=== PATIENT | male | born 1960 | race Caucasian/White ===

== ENCOUNTER 2017-11-11 11:06 | Observation (INO) ==
--- NOTE | 2017-11-11 11:20 | Emergency Department Note ---
Disposition Clinical Impression: Dehydration, GERD with esophagitis, Hyponatremia, Diabetes Disposition: Admitted As Inpatient Condition: Fair Forms: ED Satisfaction Letter Time of Disposition: 13:38 ([facility]) Nausea/Vomiting/Diarrhea HPI - General Chief complaint: ED Nausea/Vomiting/Diarrhea Stated complaint: had 3.5 gal of vodka in 2 days, vomiting. Time Seen by Provider: 11/11/17 11:12 Source: patient, EMS Mode of arrival: EMS Limitations: no limitations Nursing Notes Reviewed: Yes Vital Signs Reviewed: Yes - History of Present Illness HPI Narrative: 57-year-old male who over the past 48 hours as consumed 3.5 L of vodka does not recall much over the past couple of days since he started consuming the alcohol denies any chest pain chest pressure denies any abdominal pain has been vomiting and vomited up what he thought looked like blood or blood-type products he's had no blood in his stool he denies blurred vision double vision loss vision denies any chest pain chest pressure palpitations he was recently diagnosed with cancer per the patient but diagnosis was hemachromatosis actually 2 years ago when this diagnosis was made as result patient felt that he probably was a live anymore so he went on the binge for the drinking he states that he's had no blurred vision or double vision he doesn't know when his last bowel movement was it was at least 3-4 days ago did pass a little bit of stool 1-2 little small pieces this morning he states that is not really sure when he urinated last that he denies being incontinent he denies any history of seizure activity patient has a history of having a subdural hematoma with evacuation at [facility] over year. denies headache at this time though he does not really recall much of what happened over the past couple of days to the best of his ability he does know that that at one point he drove into town to get more alcohol Pt Subjective Complaint: nausea, vomiting, abdominal pain Onset (ago): day(s) Description of emesis: bloody, coffee grounds Radiation: diffuse Severity: mild Severity scale (1-10): 3 Quality: cramping Consistency: intermittent Improves with: nothing Worsens with: nonthing Context: alcohol abuse Associated symptoms: Reports: myalgias, loss of appetite, nausea/vomiting, weakness. Denies: chest pain, cough, diaphoresis, fever/chills, headaches, malaise, rash, dysuria, shortness of breath, syncope - Related Data Home Medications Medication Instructions Recorded Confirmed Isosorbide MONOnitrate (24 HR) 60 mg PO BID 04/14/15 11/11/17 [Imdur] Metoprolol [Lopressor] 50 mg PO BID 04/14/15 11/11/17 Nitroglycerin 0.4 mg SL PRN PRN 04/14/15 11/11/17 Famotidine [Pepcid] 40 mg PO BID 05/12/15 11/11/17 Aspirin [Adult Low Dose Aspirin EC] 81 mg PO DAILY 12/01/15 11/11/17 OxyCODONE/APAP 5/325 [Percocet 1 each PO Q6HR PRN 01/01/16 11/11/17 5/325 MG] amLODIPine [Norvasc] 5 mg PO DAILY 02/01/16 11/11/17 metFORMIN [Glucophage] 500 mg PO 0800 11/11/17 11/11/17 Previous Rx's Medication Instructions Recorded Clopidogrel Bisulfate [Plavix] 75 mg PO DAILY #30 tablet 02/01/16 Allergies Allergy/AdvReac Type Severity Reaction Status Date / Time venom-honey bee Allergy Swelling Verified 11/11/17 11:08 [bee venom (honey bee)] of Lip/Tongue/Throat Dopamine AdvReac Chest Pain Verified 11/11/17 11:08 All systems ED: reviewed and negative except as stated. Review of Systems: As Per HPI Constitutional: Reports: weakness. Denies: fever, chills Eyes: Denies: eye pain, eye discharge, vision change ENT ED: Denies: ear pain, throat pain, dental pain Cardiovascular: Denies: chest pain, palpitations, dyspnea on exertion Respiratory: Denies: cough, dyspnea, wheezes Gastrointestinal: Reports: abdominal pain, nausea, vomiting, constipation, hematemesis Genitourinary: Reports: urgency. Denies: dysuria, frequency Musculoskeletal: Denies: back pain, neck pain Integumentary: Denies: rash, abrasion Neurological: Denies: headache, weakness Psychiatric: Denies: anxiety, depression Endocrine: Denies: fatigue Hematological/Lymphatic: Denies: easy bleeding Allergic/Immunologic: Denies: facial swelling Past Medical History - Past Medical History Attestation: Yes The following information was validated with the patient. Source: patient, nursing notes reviewed Medical history: Reports: coronary artery disease, diabetes, GERD, hyperlipidemia, hypertension, migraine, TIA, other Surgical history: Reports: carotid endarterectomy Psychiatric history: Reports: bipolar, PTSD - Social History Smoking Status: Never smoker Smokeless Tobacco Status: No Alcohol use: Reports: recent (Sober for 9 years and recently restarted consumption of alcohol heavy) Last drink: hours (ago) Drug use: Reports: none Physical Exam - General Limitations: no limitations General appearance: alert, in no apparent distress, other (slight confusion of past events) - Head Head exam: atraumatic, normocephalic, normal inspection, other (prior evidence of crainiotomy) - Eye Eye exam: Present: normal appearance, PERRL, EOMI - ENT ENT exam: normal exam, normal oropharynx, mucous membranes moist, TM's normal bilaterally, normal external ear exam - Neck Neck exam: Present: normal inspection, full ROM, trachea midline - Chest Chest inspection: Present: normal inspection, symmetric chest wall rise - Respiratory Respiratory exam: Present: normal lung sounds bilaterally - Cardiovascular Cardiovascular exam: Present: regular rate, normal rhythm, normal heart sounds - Abdominal Exam Abdominal exam: Present: soft, Non-Tender, normal bowel sounds. Absent: mass, pulsatile mass - Extremities Exam Extremities exam: Present: normal inspection, full ROM, normal capillary refill. Absent: tenderness, pedal edema, joint swelling, calf tenderness - Expanded Lower Extremity Exam Neurovascular/Tendon exam: Present: normal capillary refill, normal fine/light touch Gait: observed and normal - Back Exam Back exam: Present: normal inspection, full ROM. Absent: muscle spasm - Neurological Exam Neurological exam: Present: alert, oriented X3, CN II-XII intact, normal gait - Psychiatric Psychiatric exam: Present: normal affect, normal mood - Skin Skin exam: Present: warm, dry, intact, normal color Course Course Narrative: Chills lately seen and examined laboratory data was obtained with completion of the laboratory data though showing a leukocytosis with his history of hemachromatosis CT of the abdomen was done which shows significant inflammatory changes along the duodenum region which is consistent with possible enteritis patient be placed on antibiotics given Protonix admitted services Dr. Rogers for further management Vital Signs Temperature 99.1 F 11/11/17 11:09 Pulse Rate 96 11/11/17 11:09 Respiratory Rate 18 11/11/17 11:09 Blood Pressure 143/88 11/11/17 11:09 O2 Sat by Pulse Oximetry 97 11/11/17 11:09 Temperature 99.1 F 11/11/17 11:09 Pulse Rate 83 11/11/17 13:20 Respiratory Rate 18 11/11/17 13:20 Blood Pressure 136/77 11/11/17 13:20 O2 Sat by Pulse Oximetry 94 11/11/17 13:20 Oxygen Delivery Oxygen Delivery Room Air Nausea/Vomiting/Diarrhea - MDM Narrative Medical decision making narrative: Metabolic imbalance alcohol intoxication and gastritis gastroenteritis constipation renal failure GI bleed - Differential Diagnosis Likely: dehydration - Medical Records Medical records reviewed: Yes I reviewed the patient's medical records. - Lab Data Lab results reviewed: Yes I reviewed the patient's lab results. Result diagrams: 11/11/17 11:40 11/11/17 11:40 Lab Results 11/11/17 11/11/17 11/11/17 Range/Units 11:40 11:40 11:40 WBC 22.5 H (4.3-11.1) K/mcL RBC 5.70 H (4.19-5.50) M/mcL Hgb 17.3 H (12.9-16.9) g/dL Hct 48.6 (37.5-50.1) % MCV 85.3 (83.0-100.0) fL MCH 30.4 (28.0-33.3) pg MCHC 35.6 H (31.6-35.5) g/dL RDW 14.4 (11.5-14.5) % Plt Count 281 (140-400) K/mcL MPV 8.5 L (9.4-12.4) fL Immature Gran % 0.8 (0-4) % Seg Neutrophils % 72.2 % Lymphocytes % 19.6 % Monocytes % 6.0 % Eosinophils % 1.1 % Basophils % 0.3 % Neutrophils # 16.3 H (1.6-8.9) K/mcL Lymphocytes # 4.4 (0.6-4.6) K/mcL Monocytes # 1.4 H (0.0-1.3) K/mcL Eosinophils # 0.3 (0.0-0.6) K/mcL Basophils # 0.1 (0.0-0.2) K/mcL Platelet Estimate Normal (Normal) PT 10.9 (9.4-12.1) Seconds INR 1.0 APTT 26.4 (26.0-36.0) Seconds Sodium 127 L (136-145) mEq/L Potassium 3.7 (3.5-5.1) mEq/L Chloride 85 L (98-107) mEq/L Carbon Dioxide 18 L (23-29) mEq/L BUN 26 H (6-20) mg/dL Creatinine 0.79 (0.70-1.30) mg/dL Est GFR ( Amer) > 60 (> 60) Est GFR (Non-Af Amer) > 60 (> 60) BUN/Creatinine Ratio 33 H (6-26) Glucose 222 H (70-105) mg/dL Calculated Osmolality 276 L (280-300) Lactic Acid (0.5-2.2) mmol/L Calcium 9.4 (8.6-10.3) mg/dL Magnesium 1.9 (1.6-2.6) mg/dL Total Bilirubin 0.9 (0.3-1.0) mg/dL AST 38 (13-39) Units/L ALT 29 (7-52) Units/L Alkaline Phosphatase 65 (34-104) Units/L Serum Total Protein 7.3 (6.4-8.9) g/dL Albumin 4.2 (3.5-5.7) g/dL Globulin 3.1 (2.4-3.5) g/dL Albumin/Globulin Ratio 1.4 (1.1-2.2) Urine Color (Yellow) Urine Clarity (Clear) Urine pH (5.0-8.0) pH Units Ur Specific [place] (1.010-1.025) Urine Protein (Neg-Trace) mg/dL Urine Glucose (UA) (Normal) mg/dL Urine Ketones (Negative) mg/dL Urine Blood (Negative) Urine Nitrite (Negative) Urine Bilirubin (Negative) Urine Urobilinogen (Normal) mg/dL Ur Leukocyte Esterase (Negative) Urine Microscopic RBC (0-3) per hpf Urine Microscopic WBC (0-3) per hpf Ur Squamous Epith Cells (None-Few) per lpf Amorphous Sediment (Few) Hyaline Casts (None-Few) per lpf Granular Casts (None Seen) per lpf RBC Casts (None Seen) per lpf Ur Culture Indicated? (NO) Ethyl Alcohol 17 H (Less than 10) mg/dL 11/11/17 11/11/17 Range/Units 12:47 12:55 WBC (4.3-11.1) K/mcL RBC (4.19-5.50) M/mcL Hgb (12.9-16.9) g/dL Hct (37.5-50.1) % MCV (83.0-100.0) fL MCH (28.0-33.3) pg MCHC (31.6-35.5) g/dL RDW (11.5-14.5) % Plt Count (140-400) K/mcL MPV (9.4-12.4) fL Immature Gran % (0-4) % Seg Neutrophils % % Lymphocytes % % Monocytes % % Eosinophils % % Basophils % % Neutrophils # (1.6-8.9) K/mcL Lymphocytes # (0.6-4.6) K/mcL Monocytes # (0.0-1.3) K/mcL Eosinophils # (0.0-0.6) K/mcL Basophils # (0.0-0.2) K/mcL Platelet Estimate (Normal) PT (9.4-12.1) Seconds INR APTT (26.0-36.0) Seconds Sodium (136-145) mEq/L Potassium (3.5-5.1) mEq/L Chloride (98-107) mEq/L Carbon Dioxide (23-29) mEq/L BUN (6-20) mg/dL Creatinine (0.70-1.30) mg/dL Est GFR ( Amer) (> 60) Est GFR (Non-Af Amer) (> 60) BUN/Creatinine Ratio (6-26) Glucose (70-105) mg/dL Calculated Osmolality (280-300) Lactic Acid 2.8 H (0.5-2.2) mmol/L Calcium (8.6-10.3) mg/dL Magnesium (1.6-2.6) mg/dL Total Bilirubin (0.3-1.0) mg/dL AST (13-39) Units/L ALT (7-52) Units/L Alkaline Phosphatase (34-104) Units/L Serum Total Protein (6.4-8.9) g/dL Albumin (3.5-5.7) g/dL Globulin (2.4-3.5) g/dL Albumin/Globulin Ratio (1.1-2.2) Urine Color Yellow (Yellow) Urine Clarity Clear (Clear) Urine pH 6.0 (5.0-8.0) pH Units Ur Specific [place] >= 1.030 H (1.010-1.025) Urine Protein 100 H (Neg-Trace) mg/dL Urine Glucose (UA) 100 H (Normal) mg/dL Urine Ketones >=160 H (Negative) mg/dL Urine Blood Moderate H (Negative) Urine Nitrite Negative (Negative) Urine Bilirubin Small H (Negative) Urine Urobilinogen Normal (Normal) mg/dL Ur Leukocyte Esterase Negative (Negative) Urine Microscopic RBC 5-15 H (0-3) per hpf Urine Microscopic WBC 0-3 (0-3) per hpf Ur Squamous Epith Cells Few (None-Few) per lpf Amorphous Sediment Few (Few) Hyaline Casts Few (None-Few) per lpf Granular Casts Few H (None Seen) per lpf RBC Casts Moderate H (None Seen) per lpf Ur Culture Indicated? NO (NO) Ethyl Alcohol (Less than 10) mg/dL - Radiology Data Radiology results reviewed: Yes I reviewed the patient's radiology results. ITS Impressions Abdomen/Pelvis CT 11/11/17 12:34 IMPRESSION: 1. Circumferential wall thickening of the distal esophagus with associated stranding. Findings may reflect esophagitis. However if symptoms persist consider further evaluation with endoscopy. 2. There is also mild wall thickening of the 2nd portion the duodenum, nonspecific and could be related to enteritis or peptic ulcer disease. 3. Hepatic steatosis. D/ / Yen Omalley MD / Yen Omalley MD Interpreting Provider: Yen Omalley MD Chest X-Ray 11/11/17 12:34 IMPRESSION: No acute process. D/ / Chetan Dc MD / Chetan Dc MD Interpreting Provider: Chetan Dc MD Head CT 11/11/17 12:35 IMPRESSION: No acute intracranial abnormality. D/ / 11/11/2017 13:27:19 Lucas Graves MD / barry Interpreting Provider: Lucas Graves MD Critical Care Time Critical Care Time: Yes Total Critical Care Time: 35 Attestation: Critical care performed: 35 minutes as result of the patient meeting sepsis criteria with tachycardia and laboratory data showing that he is showing some secondary endorgan injury though he has remained normal tendencies during his visit here in the emergency room as result he'll be admitted he also has electrolyte N [place] most likely secondary to his excessive drinking over the past couple of days patient is aware and agreeable with admission Time is exclusive of separately billable procedures. Time includes: direct patient care, patient reassessment, coordination of patient care, interpretation of data (laboratory data, radiology data, and respiratory data), review of patient's medical records, medical consultation and documentation of patient care. Procedures included in critical care time: Procedures excluded from critical care time:
[2017-11-11 11:45] LABS: Basophils # 0.1 K/mcL (0.0-0.2); Basophils % 0.3 %; Eosinophils % 1.1 %; Hematocrit 48.6 % (37.5-50.1); Hemoglobin 17.3 g/dL (12.9-16.9); Immature Granulocytes % 0.8 % (0-4); Lymphocytes # 4.4 K/mcL (0.6-4.6); Lymphocytes % 19.6 %; Mean Corpuscular HGB Conc 35.6 g/dL (31.6-35.5); Mean Corpuscular Hemoglobin 30.4 pg (28.0-33.3); Mean Corpuscular Volume 85.3 fL (83.0-100.0); Mean Platelet Volume 8.5 fL (9.4-12.4); Monocytes # 1.4 K/mcL (0.0-1.3); Neutrophils # 16.3 K/mcL (1.6-8.9); Platelet Count 281 K/mcL (140-400); Red Cell Distribution Width 14.4 % (11.5-14.5); Segmented Neutrophils % 72.2 %
[2017-11-11 11:50] LABS: Eosinophils # 0.3 K/mcL (0.0-0.6)
[2017-11-11 11:53] LABS: Prothrombin Time 10.9 Seconds (9.4-12.1)
[2017-11-11 11:56] LABS: Activated Partial Thrombo Time 26.4 Seconds (26.0-36.0)
[2017-11-11 12:14] LABS: Platelet Estimate Normal (Normal)
[2017-11-11 12:18] LABS: Alanine Aminotransferase 29 Units/L (7-52); Albumin 4.2 g/dL (3.5-5.7); Albumin/Globulin Ratio 1.4 (1.1-2.2); Alkaline Phosphatase 65 Units/L (34-104); Aspartate Amino Transferase 38 Units/L (13-39); BUN/Creatinine Ratio 33 (6-26); Bilirubin,Total 0.9 mg/dL (0.3-1.0); Blood Urea Nitrogen 26 mg/dL (6-20); Calcium 9.4 mg/dL (8.6-10.3); Carbon Dioxide 18 mEq/L (23-29); Chloride 85 mEq/L (98-107); Ethanol 17 mg/dL (Less than 10); Globulin 3.1 g/dL (2.4-3.5); Glucose 222 mg/dL (70-105); Magnesium 1.9 mg/dL (1.6-2.6); Osmolality,Calculated 276 (280-300); Potassium 3.7 mEq/L (3.5-5.1); Sodium 127 mEq/L (136-145); Total Protein 7.3 g/dL (6.4-8.9); eGFR For African Americans > 60 (> 60); eGFR For Non-African Americans > 60 (> 60)
[2017-11-11 12:58] LABS: Bilirubin,Urine Small (Negative); Blood,Urine Moderate (Negative); Clarity,Urine Clear (Clear); Color,Urine Yellow (Yellow); Glucose,Urine (UA) 100 mg/dL (Normal); Ketones,Urine >=160 mg/dL (Negative); Leukocyte Esterase,Urine Negative (Negative); Nitrite,Urine Negative (Negative); Protein,Urine 100 mg/dL (Neg-Trace); Specific Gravity,Urine >= 1.030 (1.010-1.025); Urobilinogen,Urine Normal (Normal)
[2017-11-11 13:08] LABS: Amorphous Sediment,Urine Few (Few); Hyaline Casts,Urine Few per lpf (None-Few); Red Blood Cell Casts,Urine Moderate per lpf (None Seen); Squamous Epithelial Cell,Urine Few per lpf (None-Few); WBC,Urine 0-3 per hpf (0-3)
[2017-11-11 13:09] LABS: Granular Casts,Urine Few per lpf (None Seen)
[2017-11-11] MEDS ORDERED: Pantoprazole 40 MG VIAL IVP ONE (13:35)
[2017-11-11] MEDS: 0.9 % Sodium Chloride 1,000 ML IVC SCH ×3 (13:39→15:19)
[2017-11-11] MEDS ORDERED: Piperacillin/Tazobactam 3.375 GM in 0.9 % Sodium Chloride Mini Bag 100 ML IVPB ONE (13:42)
[2017-11-11] MEDS ORDERED: MetroNIDAZOLE 500 MG/100 ML 500 MG/100 ML BAG IVPB ONE ×2 (13:42→14:57)
[2017-11-11] MEDS ORDERED: Nitroglycerin 0.4 MG TAB.SUBL SL PRN (14:57)
[2017-11-11] MEDS ORDERED: 0.9 % Sodium Chloride 1,000 ML IVC SCH (14:57)
[2017-11-11] MEDS ORDERED: Naloxone 0.4 MG/ML INJ IVP PRN (14:57)
[2017-11-11] MEDS: *HR* OxyCODONE/APAP 5/325 TABLET PO PRN ×2 (15:19→21:10)
[2017-11-11 16:51] LABS: Basophils # 0.1 K/mcL (0.0-0.2); Basophils % 0.4 %; Eosinophils # 0.1 K/mcL (0.0-0.6); Eosinophils % 0.6 %; Hematocrit 44.9 % (37.5-50.1); Immature Granulocytes % 0.5 % (0-4); Lymphocytes # 2.4 K/mcL (0.6-4.6); Lymphocytes % 18.1 %; Mean Corpuscular HGB Conc 35.6 g/dL (31.6-35.5); Mean Corpuscular Hemoglobin 30.5 pg (28.0-33.3); Mean Corpuscular Volume 85.5 fL (83.0-100.0); Mean Platelet Volume 8.6 fL (9.4-12.4); Monocytes # 0.7 K/mcL (0.0-1.3); Monocytes % 5.5 %; Neutrophils # 10.1 K/mcL (1.6-8.9); Platelet Count 212 K/mcL (140-400); Red Blood Count 5.25 M/mcL (4.19-5.50); Segmented Neutrophils % 74.9 %
[2017-11-11] MEDS: Isosorbide MONOnitrate (24 HR) 60 MG TAB.ER.24H PO SCH (21:09)
[2017-11-11 22:10] LABS: Basophils # 0.1 K/mcL (0.0-0.2); Basophils % 0.5 %; Eosinophils % 0.3 %; Hematocrit 43.6 % (37.5-50.1); Hemoglobin 15.6 g/dL (12.9-16.9); Immature Granulocytes % 0.4 % (0-4); Lymphocytes # 1.8 K/mcL (0.6-4.6); Mean Corpuscular HGB Conc 35.8 g/dL (31.6-35.5); Mean Corpuscular Hemoglobin 30.8 pg (28.0-33.3); Mean Corpuscular Volume 86.2 fL (83.0-100.0); Mean Platelet Volume 8.8 fL (9.4-12.4); Monocytes # 0.5 K/mcL (0.0-1.3); Monocytes % 4.2 %; Neutrophils # 10.3 K/mcL (1.6-8.9); Platelet Count 195 K/mcL (140-400); Red Blood Count 5.06 M/mcL (4.19-5.50); Red Cell Distribution Width 14.2 % (11.5-14.5); Segmented Neutrophils % 80.6 %
[2017-11-12] MEDS: 0.9 % Sodium Chloride 1,000 ML IVC SCH ×2 (00:50→08:43)
[2017-11-12 06:50] LABS: Basophils % 0.3 %; Hematocrit 42.6 % (37.5-50.1); Hemoglobin 15.1 g/dL (12.9-16.9); Immature Granulocytes % 0.3 % (0-4); Lymphocytes % 15.9 %; Mean Corpuscular HGB Conc 35.4 g/dL (31.6-35.5); Mean Corpuscular Hemoglobin 30.7 pg (28.0-33.3); Mean Corpuscular Volume 86.6 fL (83.0-100.0); Mean Platelet Volume 8.7 fL (9.4-12.4); Monocytes # 0.4 K/mcL (0.0-1.3); Monocytes % 3.5 %; Neutrophils # 9.8 K/mcL (1.6-8.9); Platelet Count 154 K/mcL (140-400); Red Blood Count 4.92 M/mcL (4.19-5.50); Red Cell Distribution Width 14.2 % (11.5-14.5)
[2017-11-12 07:06] VITALS: BP 150/77
[2017-11-12 07:11] LABS: BUN/Creatinine Ratio 21 (6-26); Blood Urea Nitrogen 13 mg/dL (6-20); Calcium 8.5 mg/dL (8.6-10.3); Carbon Dioxide 26 mEq/L (23-29); Chloride 99 mEq/L (98-107); Glucose 143 mg/dL (70-105); Osmolality,Calculated 283 (280-300); Potassium 3.6 mEq/L (3.5-5.1); Sodium 135 mEq/L (136-145); eGFR For African Americans > 60 (> 60); eGFR For Non-African Americans > 60 (> 60)
[2017-11-12] MEDS ORDERED: *HR* Metformin 500 MG TABLET PO SCH (08:00)
[2017-11-12] MEDS: Isosorbide MONOnitrate (24 HR) 60 MG TAB.ER.24H PO SCH (08:52)
[2017-11-12] MEDS ORDERED: Aspirin Enteric Coated 81 MG Tablet PO SCH (09:00)
[2017-11-12] MEDS ORDERED: amLODIPine 5 MG TABLET PO SCH (09:00)
--- NOTE | 2017-11-12 11:09 | Internal Med History&Physical ---
Date of Encounter: 11/12/17 Time of Encounter: 10:30 Assessment and Plan (1) Alcohol consumption binge drinking Current visit: Yes Status: Acute He reports being dry since 2008 until present binge episode. He feels back to his baseline now and wishes to be discharged home. (2) Hyponatremia Current visit: Yes Status: Acute Suspect secondary to significant alcohol intake. Sodium has improved 135 now. (3) Leukocytosis Current visit: Yes Status: Chronic Present on most labs since May 2014. Qualifiers: Leukocytosis type: unspecified Qualified Code(s): D72.829 - Elevated white blood cell count, unspecified Internal Medicine - H&P: HPI Chief complaint: Vomiting Admitted From: Emergency Dept Plans for Post Hospital Care: Home History of present illness: Mr. Pfeiffer is a 57 year old male who states he began drinking vodka the evening of November 09. Over the ensuing hours he consumed approximately 3.5 L of vodka. He began having episodes of vomiting after several hours but continued to drink. When the vomiting became projectile and more frequent he became concerned so called the squad. He was brought to emergency room and evaluated and admitted to [facility] floor for ongoing care needs. He reports he feels back to his baseline now and wishes to be discharged home. He claimed he had not drunk any alcohol since 01/04/2009 until starting the binge drinking episode described above. He is uncertain what triggered the binge drinking. He denies known disorders of his liver gallbladder or exocrine pancreas. He denies hematemesis or blood in the stool. Past Med Surg Social Fam HX - Past Medical History Medical history: coronary artery disease, diabetes, GERD, hyperlipidemia, hypertension, migraine, TIA, other Psychiatric history: bipolar, PTSD - Past Surgical History Surgical History: carotid endarterectomy - Social History Smoking Status: Never smoker Smokeless Tobacco Status: No Alcohol use: recent Drug use: none Internal Medicine - H&P: Meds Isosorbide MONOnitrate (24 HR) [Imdur] 60 mg PO BID 04/14/15 [History] Metoprolol [Lopressor] 50 mg PO BID 04/14/15 [History] Nitroglycerin 0.4 mg SL PRN PRN 04/14/15 [History] Famotidine [Pepcid] 40 mg PO BID 05/12/15 [History] Aspirin [Adult Low Dose Aspirin EC] 81 mg PO DAILY 12/01/15 [History] OxyCODONE/APAP 5/325 [Percocet 5/325 MG] 1 each PO Q6HR PRN 01/01/16 [History] Clopidogrel Bisulfate [Plavix] 75 mg PO DAILY #30 tablet 02/01/16 [Rx] amLODIPine [Norvasc] 5 mg PO DAILY 02/01/16 [History] metFORMIN [Glucophage] 500 mg PO 0800 11/11/17 [History] 3 Allergy/AdvReac Type Severity Reaction Status Date / Time venom-honey bee Allergy Swelling Verified 11/11/17 11:08 [bee venom (honey bee)] of Lip/Tongue/Throat Dopamine AdvReac Chest Pain Verified 11/11/17 11:08 All Systems PM: A 10-system review of systems was performed and is negative for pertinent findings except as documented above in the HPI. Review of systems: Gen.: He states his weight has fluctuated over the past few years. Cardiovascular: He has history of hypertension. He has no history of DVT or pulmonary embolus. He reports having a heart cath done in 2016 but I do not find record of that in the archived files. Last documented heart catheter was 2010 which demonstrated totally occluded RCA. He had EST in 2015 which showed reversible inferior defect consistent with known RCA occlusion. He has ASPVD. He had an echocardiogram 12/22/2015 which showed LVEF of 55-60%. The interventricular septum thickness measurement was increased to 1.20 cm. Left atrium was enlarged at 4.2 cm. Right Atrium was reported enlarged without measurement recorded. The E/A ratio was 1. He claims he had a left leg stent placed for ASPVD. Respiratory: He smoked from age [age] up to 1 pack per day. He claims a diagnosis of COPD but does not use home oxygen. He has LEORA and wears BiPAP at bedtime GI: As per history of present illness : He denies hematuria dysuria kidney stones Neurologic: He had left carotid endarterectomy December 2015. He had TIAs prior to the surgery but has had none postop. He denies large distribution strokes or seizures. Endocrine: He was diagnosed with DM 2 in 2016. He claims diagnosis of hyperlipidemia but denies thyroid disease Hematology/oncology: He claims he has been diagnosed with hemachromatosis. He denies other blood disorders or malignancies Psychiatric: He has diagnoses of bipolar disorder from review of available records. He claims PTSD. 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 He reports sustaining a skull fracture 2008 following a fall at home. He had craniotomy decompression surgery. He has no significant neurologic deficit since then. - Constitutional Vitals: Temp Pulse Resp BP Pulse Ox 98.8 F 75 16 150/77 95 11/12/17 07:02 11/12/17 07:02 11/12/17 07:02 11/12/17 07:02 11/12/17 07:02 Exam: Gen.: He is a well-developed well-nourished male resting comfortably in bed who appears in no acute distress HEENT: Head shows scalp scars consistent with remote craniotomy. Otherwise it is nontraumatic and normocephalic. Eyes: EOMI. There is no scleral icterus. Mouth: Mucosa is moist. Neck: Supple and nontender. There is no thyromegaly or adenopathy noted. Heart: Regular without murmurs gallops or ectopics Lungs: No wheezes or crackles are heard. Abdomen: Soft and nontender. No masses or guarding are noted. Extremities: There is no cyanosis edema or clubbing noted. Dorsalis pedis and posttibial pulses are trace palpable bilaterally. Neurologic: Mental status: He is talkative and a good historian. Cranial nerves : Smile is symmetric. Forehead wrinkles bilaterally. Tongue protrudes midline. EOMI. Motor: There is no pronator drift. Cerebellar: Finger to nose is intact bilaterally. Skin: Warm and dry Internal Med - H&P Results - Labs CBC & Chem 7: 11/12/17 06:40 11/12/17 06:40 Labs: Short CBC 11/11/17 11/12/17 Range/Units 21:46 06:40 WBC 12.8 H 12.3 H (4.3-11.1) K/mcL Hgb 15.6 15.1 (12.9-16.9) g/dL Hct 43.6 42.6 (37.5-50.1) % Plt Count 195 154 (140-400) K/mcL Neutrophils # 10.3 H 9.8 H (1.6-8.9) K/mcL BMP 11/12/17 06:40 Sodium 135 L Potassium 3.6 Chloride 99 Carbon Dioxide 26 BUN 13 Creatinine 0.63 L Glucose 143 H Calcium 8.5 L
--- NOTE | 2017-11-12 11:32 | Discharge Summary ---
Date of Encounter: 11/12/17 Time of Encounter: 10:30 - Discharge Diagnosis (1) Alcohol consumption binge drinking Priority: Primary Status: Acute (2) Hyponatremia Priority: Secondary Status: Acute (3) Leukocytosis Priority: Secondary Status: Chronic Qualifiers: Leukocytosis type: unspecified Qualified Code(s): D72.829 - Elevated white blood cell count, unspecified Hospital course: Mr. Pfeiffer is a 57 year old male who states he began drinking vodka the evening of November 09. Over the ensuing hours he consumed approximately 3.5 L of vodka. He began having episodes of vomiting after several hours but continued to drink. When the vomiting became projectile and more frequent he became concerned so called the squad. He was brought to emergency room and evaluated and admitted to [facility] for ongoing care needs. Initial orders were written by the emergency room physician. I saw him on November 12 and performed a history physical and discharge. By the time I saw him he felt back to baseline and wished to be discharged home which I felt was reasonable. His sodium improved to 135. Room air oximetry will be checked prior to discharge. I encouraged him to avoid further binge drinking. He will follow with his PCP Colleen Riggs CNP within 1 week. - Time Spent with Patient Total time spent providing and/or coordinating discharge services: - Discharge Medications Home Medications: Isosorbide MONOnitrate (24 HR) [Imdur] 60 mg PO BID 04/14/15 [History] Metoprolol [Lopressor] 50 mg PO BID 04/14/15 [History] Nitroglycerin 0.4 mg SL PRN PRN 04/14/15 [History] Famotidine [Pepcid] 40 mg PO BID 05/12/15 [History] Aspirin [Adult Low Dose Aspirin EC] 81 mg PO DAILY 12/01/15 [History] OxyCODONE/APAP 5/325 [Percocet 5/325 MG] 1 each PO Q6HR PRN 01/01/16 [History] Clopidogrel Bisulfate [Plavix] 75 mg PO DAILY #30 tablet 02/01/16 [Rx] amLODIPine [Norvasc] 5 mg PO DAILY 02/01/16 [History] metFORMIN [Glucophage] 500 mg PO 0800 11/11/17 [History] Allergies/Adverse Reactions: 3 Allergy/AdvReac Type Severity Reaction Status Date / Time venom-honey bee Allergy Swelling Verified 11/11/17 11:08 [bee venom (honey bee)] of Lip/Tongue/Throat Dopamine AdvReac Chest Pain Verified 11/11/17 11:08 Date of admission: 11/11/17 14:39 Primary care physician: Colleen Riggs CNP - Constitutional Vitals: Temp Pulse Resp BP Pulse Ox 98.8 F 75 16 150/77 95 11/12/17 07:02 11/12/17 07:02 11/12/17 07:02 11/12/17 07:02 11/12/17 07:02 - Patient Status Disposition: Home, Self-Care Condition: Fair Functional capacity at discharge: independent ambulation Overall status at discharge: patient is progressing back to baseline - Discharge Instructions Follow Up With: Colleen Riggs CNP [Primary Care Provider] - 1 week - Diet and Activity Activity: resume usual activities as tolerated Diet: advance to your usual diet
== END 2017-11-12 12:00 | disposition home or self-care (01) ==
LOC: EMEROOPIK 11:06 → INPPIK 11:06
PROVIDERS: ADMIT Emergency Medicine; ATTEND Internal Medicine